=== PATIENT | male | born 1975 | race Caucasian/White ===

== ENCOUNTER 2016-10-06 09:42 | Outpatient (CLI) | payer OTHER | END 2016-10-06 09:43 | LOC: LAB 09:42 | PROVIDERS: ATTEND Internal Medicine Cardiovascular Disease | DX: Z51.81 Encounter for therapeutic drug level monitoring (principal); Z79.01 Long term (current) use of anticoagulants; Z95.4 Presence of other heart-valve replacement | CPT/HCPCS: 36415; 85610 ==

== ENCOUNTER 2016-11-14 10:00 | Outpatient (CLI) | payer OTHER | END 2016-11-14 10:02 | LOC: LAB 10:00 | PROVIDERS: ATTEND Internal Medicine Cardiovascular Disease | DX: Z51.81 Encounter for therapeutic drug level monitoring (principal); Z79.01 Long term (current) use of anticoagulants | CPT/HCPCS: 36415; 85610 ==

== ENCOUNTER 2016-12-21 08:38 | Outpatient (CLI) | payer OTHER | END 2016-12-21 08:40 | LOC: LAB 08:38 | PROVIDERS: ATTEND Internal Medicine Cardiovascular Disease | DX: Z51.81 Encounter for therapeutic drug level monitoring (principal); Z79.01 Long term (current) use of anticoagulants; Z95.2 Presence of prosthetic heart valve | CPT/HCPCS: 36415; 85610 ==

== ENCOUNTER 2017-01-25 09:17 | Outpatient (CLI) | payer OTHER | END 2017-01-25 09:19 | LOC: LAB 09:17 | PROVIDERS: ATTEND Internal Medicine Cardiovascular Disease | DX: Z51.81 Encounter for therapeutic drug level monitoring (principal); Z79.01 Long term (current) use of anticoagulants; Z95.2 Presence of prosthetic heart valve | CPT/HCPCS: 36415; 85610 ==

== ENCOUNTER 2017-03-07 09:52 | Outpatient (CLI) | payer OTHER | END 2017-03-07 12:36 | LOC: LAB 09:52 | PROVIDERS: ATTEND Internal Medicine Cardiovascular Disease | DX: Z95.4 Presence of other heart-valve replacement (principal) | CPT/HCPCS: 36415; 85610 ==

== ENCOUNTER 2017-04-24 09:33 | Outpatient (CLI) | payer OTHER | END 2017-04-24 09:34 | LOC: LAB 09:33 | PROVIDERS: ATTEND Internal Medicine Cardiovascular Disease | DX: Z95.2 Presence of prosthetic heart valve (principal); Z79.01 Long term (current) use of anticoagulants | CPT/HCPCS: 36415; 85610 ==

== ENCOUNTER 2017-05-30 13:36 | Outpatient (CLI) | payer OTHER | END 2017-05-30 13:37 | LOC: LAB 13:36 | PROVIDERS: ATTEND Internal Medicine Cardiovascular Disease | DX: Z95.2 Presence of prosthetic heart valve (principal) | CPT/HCPCS: 36415; 85610 ==

== ENCOUNTER 2017-05-30 13:38 | Outpatient (CLI) | payer OTHER | END 2017-05-30 13:40 | LOC: CARD 13:38 | PROVIDERS: ATTEND Internal Medicine Cardiovascular Disease | DX: I10 Essential (primary) hypertension (principal); E78.5 Hyperlipidemia, unspecified; R00.1 Bradycardia, unspecified; Z95.2 Presence of prosthetic heart valve | CPT/HCPCS: G0463 ==

== ENCOUNTER → 2017-07-10 | Outpatient (CLI) | payer OTHER | LOC: LAB 08:47 | PROVIDERS: ATTEND Internal Medicine Cardiovascular Disease | DX: Z95.2 Presence of prosthetic heart valve (principal) | CPT/HCPCS: 36415; 85610 ==

== ENCOUNTER 2017-08-15 08:59 | Outpatient (CLI) | payer OTHER | END 2017-08-15 09:00 | LOC: LAB 08:59 | PROVIDERS: ATTEND Internal Medicine Cardiovascular Disease | DX: Z95.2 Presence of prosthetic heart valve (principal) | CPT/HCPCS: 36415; 85610 ==

== ENCOUNTER 2017-09-28 09:08 | Outpatient (CLI) | payer OTHER | END 2017-09-28 09:10 | LOC: LAB 09:08 | PROVIDERS: ATTEND Internal Medicine Cardiovascular Disease | DX: Z95.2 Presence of prosthetic heart valve (principal) | CPT/HCPCS: 36415; 85610 ==

== ENCOUNTER 2017-10-26 09:59 | Outpatient (CLI) | payer OTHER | END 2017-10-26 10:00 | LOC: LAB 09:59 | PROVIDERS: ATTEND Internal Medicine Cardiovascular Disease | DX: Z95.2 Presence of prosthetic heart valve (principal) | CPT/HCPCS: 36415; 85610 ==

== ENCOUNTER 2017-11-30 09:12 | Outpatient (CLI) | payer OTHER | END 2017-11-30 09:40 | LOC: LAB 09:12 | PROVIDERS: ATTEND Internal Medicine Cardiovascular Disease | DX: Z95.2 Presence of prosthetic heart valve (principal) | CPT/HCPCS: 36415; 85610 ==

== ENCOUNTER 2018-01-08 09:20 | Outpatient (CLI) | payer OTHER | END 2018-01-08 09:23 | LOC: LAB 09:20 | PROVIDERS: ATTEND Internal Medicine Cardiovascular Disease | DX: Z95.2 Presence of prosthetic heart valve (principal) | CPT/HCPCS: 36415; 85610 ==

== ENCOUNTER 2018-02-05 09:05 | Outpatient (CLI) | payer OTHER | END 2018-02-05 12:15 | LOC: LAB 09:05 | PROVIDERS: ATTEND Internal Medicine Cardiovascular Disease | DX: Z95.2 Presence of prosthetic heart valve (principal) | CPT/HCPCS: 36415; 85610 ==

== ENCOUNTER 2018-03-13 10:09 | Outpatient (CLI) | payer OTHER | END 2018-03-13 10:10 | LOC: LAB 10:09 | PROVIDERS: ATTEND Internal Medicine Cardiovascular Disease | DX: Z95.2 Presence of prosthetic heart valve (principal) | CPT/HCPCS: 36415; 85610 ==

== ENCOUNTER 2018-04-24 09:40 | Outpatient (CLI) | payer OTHER | END 2018-04-24 09:42 | LOC: LAB 09:40 | PROVIDERS: ATTEND Internal Medicine Cardiovascular Disease | DX: Z95.2 Presence of prosthetic heart valve (principal) | CPT/HCPCS: 36415; 85610 ==

== ENCOUNTER 2018-06-11 09:35 | Outpatient (CLI) | payer OTHER | END 2018-06-11 09:36 | LOC: LAB 09:35 | PROVIDERS: ATTEND Internal Medicine Cardiovascular Disease | DX: Z95.2 Presence of prosthetic heart valve (principal) | CPT/HCPCS: 36415; 85610 ==

== ENCOUNTER 2018-09-06 08:53 | Outpatient (CLI) | payer OTHER ==
[2018-09-06 12:57] LABS: eGFR (Non-African) > 60
== END 2018-09-06 08:58 | disposition home or self-care (01) ==
LOC: LAB 08:53
PROVIDERS: ATTEND Internal Medicine Cardiovascular Disease
DX: I36.8 Other nonrheumatic tricuspid valve disorders (principal); Z95.2 Presence of prosthetic heart valve
CPT/HCPCS: 36415; 80048; 85610

== ENCOUNTER 2018-10-02 08:46 | Outpatient (CLI) | payer OTHER | END 2018-10-02 08:48 | LOC: LAB 08:46 | PROVIDERS: ATTEND Internal Medicine Cardiovascular Disease | DX: I36.8 Other nonrheumatic tricuspid valve disorders (principal); Z95.2 Presence of prosthetic heart valve | CPT/HCPCS: 36415; 85610 ==

== ENCOUNTER 2018-11-12 09:13 | Outpatient (CLI) | payer OTHER | END 2018-11-12 09:15 | LOC: LAB 09:13 | PROVIDERS: ATTEND Internal Medicine Cardiovascular Disease | DX: I36.8 Other nonrheumatic tricuspid valve disorders (principal); Z95.2 Presence of prosthetic heart valve | CPT/HCPCS: 36415; 85610 ==

== ENCOUNTER 2019-01-01 09:19 | Outpatient (CLI) | payer OTHER | END 2019-01-01 09:21 | LOC: LAB 09:19 | PROVIDERS: ATTEND Internal Medicine Cardiovascular Disease | DX: I36.8 Other nonrheumatic tricuspid valve disorders (principal); Z95.2 Presence of prosthetic heart valve | CPT/HCPCS: 36415; 85610 ==

== ENCOUNTER 2019-02-01 09:24 | Outpatient (CLI) | payer OTHER | END 2019-02-01 09:26 | LOC: LAB 09:24 | PROVIDERS: ATTEND Internal Medicine Cardiovascular Disease | DX: I63.89 Other cerebral infarction (principal); Z95.2 Presence of prosthetic heart valve | CPT/HCPCS: 36415; 85610 ==

== ENCOUNTER 2019-03-26 08:40 | Outpatient (CLI) | payer OTHER | END 2019-03-26 08:45 | LOC: LAB 08:40 | PROVIDERS: ATTEND Internal Medicine Cardiovascular Disease | DX: I34.8 Other nonrheumatic mitral valve disorders (principal); Z95.2 Presence of prosthetic heart valve | CPT/HCPCS: 36415; 85610 ==

== ENCOUNTER 2019-05-07 09:15 | Outpatient (CLI) | payer OTHER | END 2019-05-07 09:17 | LOC: LAB 09:15 | PROVIDERS: ATTEND Internal Medicine Cardiovascular Disease | DX: T36.8X5A Adverse effect of other systemic antibiotics, initial encounter (principal); Z95.2 Presence of prosthetic heart valve | CPT/HCPCS: 36415; 85610 ==

== ENCOUNTER 2019-06-20 10:02 | Outpatient (CLI) | payer OTHER | END 2019-06-20 10:15 | LOC: LAB 10:02 | PROVIDERS: ATTEND Internal Medicine Cardiovascular Disease | DX: T36.8X1A Poisoning by other systemic antibiotics, accidental (unintentional), initial encounter (principal); Z95.2 Presence of prosthetic heart valve | CPT/HCPCS: 36415; 85610 ==

== ENCOUNTER 2019-07-11 09:34 | Outpatient (CLI) | payer OTHER | END 2019-07-11 09:39 | LOC: LAB 09:34 | PROVIDERS: ATTEND Internal Medicine Cardiovascular Disease | DX: T34.8 Frostbite with tissue necrosis of ankle, foot, and toe(s) (principal); Z95.2 Presence of prosthetic heart valve | CPT/HCPCS: 36415; 85610 ==

== ENCOUNTER 2019-08-20 09:18 | Outpatient (CLI) | payer OTHER | END 2019-08-20 09:23 | LOC: LAB 09:18 | PROVIDERS: ATTEND Internal Medicine Cardiovascular Disease | DX: Z51.81 Encounter for therapeutic drug level monitoring (principal); Z79.01 Long term (current) use of anticoagulants; Z95.2 Presence of prosthetic heart valve | CPT/HCPCS: 36415; 85610 ==

== ENCOUNTER 2019-09-16 10:29 | Outpatient (CLI) | payer OTHER | END 2019-09-16 10:34 | LOC: LAB 10:29 | PROVIDERS: ATTEND Internal Medicine Cardiovascular Disease | DX: Z51.81 Encounter for therapeutic drug level monitoring (principal); Z79.01 Long term (current) use of anticoagulants; Z95.2 Presence of prosthetic heart valve | CPT/HCPCS: 36415; 85610 ==